=== PATIENT | female | born 1995 | race Caucasian/White ===

== ENCOUNTER 2020-05-14 23:28 | Emergency (ER) | payer OTHER ==
[~2020-05-14] VITALS: Ht 157.5 cm; Wt 122.7 kg
[2020-05-14 23:44] VITALS: BP 145/89
--- NOTE | 2020-05-15 00:05 | RAD ---
XR CHEST 2V History: Reason: chest pain / Spl. Instructions: / History: Comparison: None. Findings: The cardiomediastinal silhouette is normal. Pulmonary vasculature is normal. Mild elevation of right hemidiaphragm. The lungs are clear. No pleural effusion or pneumothorax is seen. There is no acute day ne abnormality. IMPRESSION: No acute cardiopulmonary process. Electronically signed by: Mario Harris MD (05/15/2020 12:02 AM) [facility]
[2020-05-15] MEDS ORDERED: DIAZ2TAB PO (00:26)
--- NOTE | 2020-05-15 00:26 | PHYS DOC ---
Past History Past Medical History: No Pertinent History Past Surgical History: No Surgical History Alcohol Use: None General Adult EDM: Chief Complaint: CHEST PAIN HPI: HPI: Patient is a [age] year old [sex] who presents with [] Review of Systems: Review of Systems: Constitutional: Denies fever or chills Eyes: Denies redness or eye pain HENT: Denies nasal congestion or sore throat Respiratory: Denies cough or shortness of breath Cardiovascular: Reports chest pain; denies palpitations GI: Denies abdominal pain, nausea, or vomiting : Denies dysuria or hematuria Musculoskeletal: Denies back pain or joint pain Integument: Denies rash or skin lesions Neurologic: Denies headache, focal weakness or sensory changes Complete systems were reviewed and found to be within normal limits, except as documented in this note. Allergies: Allergies: Allergies Coded Allergies Type Severity Reaction Last Updated Verified No Known Drug Allergies 05/14/20 No Physical Exam: PE: Constitutional: Well developed, obese, no acute distress, non-toxic appearance HENT: Normocephalic, atraumatic Eyes: Conjunctiva normal, no discharge Neck: Normal range of motion supple Lungs & Thorax: No respiratory distress, equal chest rise and fall, anterior chest wall pain with movement Abdomen: Soft, no tenderness, obese Skin: Warm, dry, no erythema, acanthosis nigricans noted to posterior neck with skin tags Extremities: No tenderness, ROM intact, no edema Neurologic: Alert and oriented X 3, no focal deficits noted Psychologic: Affect normal, judgment normal Current Patient Data: Labs: Laboratory Tests Test 05/14/20 23:52 POC Urine HCG, Qualitative hcg negative (Negative) Vital Signs: Vital Signs Date Time Temp Pulse Resp B/P (MAP) Pulse Ox O2 Delivery O2 Flow Rate FiO2 05/14/20 23:44 99.2 105 18 145/89 (107) 100 Room Air EKG: EKG: @2337 Sinus tachycardia at 107bpm, NO ST elevation, QRS 88ms, QT/QTc 374/505ms Radiology/Procedures: Radiology/Procedures: PROCEDURE: CHEST PA & LATERAL XR CHEST 2V History: Reason: chest pain / Spl. Instructions: / History: Comparison: None. Findings: The cardiomediastinal silhouette is normal. Pulmonary vasculature is normal. Mild elevation of right hemidiaphragm. The lungs are clear. No pleural effusion or pneumothorax is seen. There is no acute bone abnormality. IMPRESSION: No acute cardiopulmonary process. Electronically signed by: Mario Harris MD (05/15/2020 12:02 AM) [facility] Heart Score: C/O Chest Pain: Yes HEART Score for Chest Pain: HEART Score for Chest Pain Response (Comments) Value History Slighlty/Non-Suspicious 0 ECG Normal 0 Age < 45 0 Risk Factors No Risk Factors 0 Total 0 Risk Factors: Risk Factors: DM, Current or recent (<one month) smoker, HTN, HLP, family history of CAD, obesity. Risk Scores: Score 0 - 3: 2.5% MACE over next 6 weeks - Discharge Home Score 4 - 6: 20.3% MACE over next 6 weeks - Admit for Clinical Observation Score 7 - 10: 72.7% MACE over next 6 weeks - Early Invasive Strategies Course & Med Decision Making: Course & Med Decision Making Pertinent Imaging studies reviewed. (See chart for details) Patient presents with atypical chest pain which is worse with movement to anterior chest. Patient does report some anxiety component. No cardiac risk factors. Patient without history or family history of PE/DVT. No calf tenderness noted. EKG stable. Chest x-ray without acute process. Symptomatic treatment provided with oral Valium. Patient stable for discharge with outpatient follow-up with PCP. Discussed findings and plan with patient and mother, who acknowledge understanding and agreement. Chana Disclaimer: Chana Disclaimer: This electronic medical record was generated, in whole or in part, using a voice recognition dictation system. Departure Departure: Impression: Primary Impression: Chest wall pain Additional Impression: Anxiety Disposition: 01 DC HOME SELF CARE/HOMELESS Condition: STABLE Referrals: ZACHERY MITTAL MD (PCP) Patient Instructions: Anxiety and Panic Attacks, [id number], Chest Wall Pain, [id number] Scripts Diazepam (VALIUM) 2 Mg Tablet 0.5-1 TAB PO TID PRN for ANXIETY, #10 TAB Prov: NURYS STAFFORD DO 05/15/20 NURYS STAFFORD DO May 15, 2020 00:26
[2020-05-15] MEDS ORDERED: diazePAM 2 MG TABLET. PO ONE (01:00)
--- NOTE | 2020-05-15 06:22 | EKG ---
[address] [address] Test Date: 2020-05-14 Test Time: 23:36:34 Pat Name: BRANDI THRASHER Department: Room: Gender: F Motion Picture Cameraman: HAYES : 1995 Requested By: NURYS STAFFORD Order Number: [id number] Reading MD: Measurements Intervals [place] Rate: 105 P: 43 DE: 150 QRS: 38 QRSD: 92 T: 9 QT: 306 QTc: 408 Interpretive Statements SINUS TACHYCARDIA COMPLEX(ES) WITH ABERRANT INTRAVENTRICULAR CONDUCTION VENTRICULAR PREMATURE COMPLEX(ES) T ABNORMALITY IN ANTERIOR LEADS ABNORMAL ECG RI6.02 No previous ECG available for comparison
== END 2020-05-15 00:30 | disposition home or self-care (01) ==
LOC: ER 23:28
DX: R07.2 Precordial pain (principal); F41.9 Anxiety disorder, unspecified
CPT/HCPCS: 71046; 81025; 93005; 99283